=== PATIENT | male | born 1930 | race Caucasian/White ===

== ENCOUNTER 2016-12-03 02:09 | Inpatient (IN) | payer MEDICARE ==
[2016-12-03] VITALS (22 sets, daily range): BP systolic 65–145; BP diastolic 35–99; PULSE 70–84; RESP 20–51; TEMP 90.1–93.7; O2SAT 85–100
[~2016-12-03] VITALS: Ht 182.9 cm; Wt 89.0 kg
[~2016-12-03 02:09] MED LIST: ARIC10TA PO; ASPI81TA82 PO; CHOL1CAP6 PO; FINA5TAB77 PO; HYDR-3533 PO; LISI-363 PO; LORA-392 PO; METF750T PO; NAME10TA PO; NITR.3 SL; OMEG100037 PO; PROBCAP4 PO; TAMS0.4C67 PO; VITA10004 PO
[2016-12-03] MEDS ORDERED: RESP: ALBUTEROL 2.5 MG/IPRATROPIUM 0.5 MG NEB (SCH) NEB ONE (02:15)
[2016-12-03] MEDS ORDERED: NALOXONE HCL 2 MG/2 ML VIAL IV PUSH ONE ×2 (02:15→02:30)
--- NOTE | 2016-12-03 02:24 | PD ---
HPI Chief Complaint: Respiratory Distress Time Seen by Provider: 02:10 Travel History International Travel<30 days: No Contact w/Intl Traveler<30days: No Traveled to known affect area: No History of Present Illness HPI 86 yo M arrives from [facility] where he had been somewhat dyspneic for approx 6 hours and less interactive than normal. Per Lavern LIMON at [facility] the patient is normally communicative with clear speech. He is wheelchair bound. Over the past couple days he has been declining and increasingly confused. This evening he became increasingly short of breath. With regard to the confusion the patient was taking off his clothes and taking off his briefs. He was unable to swallow his medications at one point and gurgling was heard by halfway staff. It sounded as though there was "liquid in his chest" and EMS was activated at that point. PFSH Past Medical History Alzheimer's Disease: Yes Anemia: Yes Atrial Fibrillation: Yes Anxiety: Yes Dementia: Yes Diabetes: Yes (TYPE 2) Patient Takes Glucophage: No Diminished Hearing: No Gastrointestinal Disorders: Yes (GALLSTONES WITH STENT PLACEMENT) Genitourinary: Yes (BPH) Hypertension: Yes Immunizations Current: Yes Tetanus Vaccination: Unknown Social History Alcohol Use: No Tobacco Use: Yes Substance Use: No Allergies-Medications (Allergen,Severity, Reaction): Coded Allergies: No Known Allergies (Unverified , 05/12/16) Reported Meds & Prescriptions Reported Meds & Active Scripts Active Reported Lantiseptic Skin Protecta (Skin Protectants, Misc.) 50 % Oin TOPICAL TID Hydrocortisone Topical 1% Cream 1 Applic TOPICAL BID Santyl Topical (Collagenase) 250 Unit/Gm Oint 1 Applic TOPICAL DAILY Gentamicin Topical 0.1% Oint Tramadol (Tramadol HCl) 50 Mg Tab 50 Mg PO Q8H PRN Duoneb (Ipratropium-Albuterol Neb) 0.5-2.5 Mg/3 Ml Neb 1 Nebule INH Q4HR NEB Robitussin Peak Cold Dm 100-10 mg/5Ml (Dextromethorphan-Guaifenesin) 1 Syp Syp 10 Ml PO Q6HR PRN Ascorbic Acid 500 Mg Tab 500 Mg PO BID Meloxicam 7.5 Mg Tab 7.5 Mg PO BID Doxycycline Hyclate 100 Mg Cap 100 Mg PO BID Zinc (Zinc Gluconate) 50 Mg Tab 220 Mg PO DAILY Tamsulosin (Tamsulosin HCl) 0.4 Mg Cap 0.4 Mg PO DAILY Namenda Xr (Memantine) 28 Mg Caper 28 Mg PO DAILY Walt Multivitamin with Mineral (Multivitamin with Minerals) 1 Each Tablet 1 Tab PO DAILY Metformin (Metformin HCl) 500 Mg Tab 500 Mg PO DAILY With a meal Melatonin 3 Mg Tab 3 Mg PO HS Lisinopril 20 Mg Tab 20 Mg PO DAILY Hydrochlorothiazide 12.5 Mg Cap 12.5 Mg PO DAILY [place] 3 1000 mg ([place]-3 Fatty Acids) 1 Cap Cap 1,000 Mg PO DAILY Finasteride 5 Mg Tab 5 Mg PO DAILY Do not crush. Donepezil 10 Mg Tab 10 Mg PO DAILY Docusate Sodium 100 Mg Cap 100 Mg PO DAILY Vitamin D-1000 (Cholecalciferol) 1,000 Unit Tab 1,000 Units PO DAILY Aspirin 81 Mg Chew 81 Mg CHEW DAILY Review of Systems ROS Limitations: Clinical Condition Physical Exam Narrative GENERAL: 86 yo M, GCS 7 (E2, V1, M4), moderate to severe respiratory distress SKIN: Warm and dry. HEAD: Atraumatic. Normocephalic. EYES: Pupils equal and round. No scleral icterus. No injection or drainage. ENT: No nasal bleeding or discharge. Mucous membranes pink and moist. NECK: Trachea midline. No JVD. CARDIOVASCULAR: Regular rate and rhythm. RESPIRATORY: Irregular rhythm. Rate 74. GASTROINTESTINAL: Soft. TTP suprapubic abdomen. MUSCULOSKELETAL: Extremities without clubbing, cyanosis, or edema. No obvious deformities. NEUROLOGICAL: GCS 7. Pinpoint pupils. PSYCHIATRIC: Appropriate mood and affect; insight and judgment normal. Data Data Last Documented VS Vital Signs Date Time Temp Pulse Resp B/P Pulse Ox O2 Delivery O2 Flow Rate FiO2 12/03/16 03:38 90.1 12/03/16 02:52 96 Nasal Cannula 4.00 12/03/16 02:40 79 30 113/71 Temp 90.1 Orders Electrocardiogram (12/03/16 02:10) Complete Blood Count With Diff (12/03/16 02:10) Comprehensive Metabolic Panel (12/03/16 02:10) Prothrombin Time / Inr (Pt) (12/03/16 02:10) Act Partial Throm Time (Ptt) (12/03/16 02:10) Lactic Acid Sepsis Protocol (12/03/16 02:10) Magnesium (Mg) (12/03/16 02:10) Lipase (12/03/16 02:10) Ckmb (Isoenzyme) Profile (12/03/16 02:10) Troponin I (12/03/16 02:10) Urinalysis - C+S If Indicated (12/03/16 02:10) Blood Culture (12/03/16 02:10) Chest, Single Ap (12/03/16 02:10) Arterial Blood Gas (Abg) (12/03/16 02:10) Blood Glucose (12/03/16 02:10) Ecg Monitoring (12/03/16 02:10) Iv Access Insert/Monitor (12/03/16 02:10) Oximetry (12/03/16 02:10) Oxygen Administration (12/03/16 02:10) Urinary Catheter Insert/Apply (12/03/16 02:10) Ct Abd/Pel W/O Iv Contrast (12/03/16 02:10) Ct Brain W/O Iv Contrast(Rout) (12/03/16 02:10) Ammonia (12/03/16 02:10) Naloxone Inj (Narcan Inj) (12/03/16 02:15) Albuterol-Ipratropium Neb (Duoneb Neb) (12/03/16 02:15) Sodium Chlor 0.9% 1000 Ml Inj (Ns 1000 M (12/03/16 02:30) Sodium Chlor 0.9% 1000 Ml Inj (Ns 1000 M (12/03/16 02:30) Naloxone Inj (Narcan Inj) (12/03/16 02:30) Urine Culture (12/03/16 02:25) Piperacil-Tazo 2.25 Gm Premix (Zosyn 2.2 (12/03/16 03:00) Vancomycin Inj (Vancomycin Inj) (12/03/16 03:00) CKMB (12/03/16 02:05) CKMB% (12/03/16 02:05) Ct Thorax/ Chest Wo Iv Contras (12/03/16 ) Hydralazine (Apresoline) (12/03/16 03:15) Warming [place] / Warming Syst PRN (12/03/16 03:25) Admit Order (Ed Use Only) (12/03/16 03:57) Labs Laboratory Tests Test 12/03/16 12/03/16 12/03/16 02:05 02:15 02:25 White Blood Count 7.8 TH/MM3 Red Blood Count 3.25 MIL/MM3 Hemoglobin 10.5 GM/DL Hematocrit 31.9 % Mean Corpuscular Volume 97.9 FL Mean Corpuscular Hemoglobin 32.2 PG Mean Corpuscular Hemoglobin 32.8 % Concent Red Cell Distribution Width 15.4 % Platelet Count 89 TH/MM3 Mean Platelet Volume 10.6 FL Neutrophils (%) (Auto) 87.2 % Lymphocytes (%) (Auto) 9.3 % Monocytes (%) (Auto) 3.1 % Eosinophils (%) (Auto) 0.2 % Basophils (%) (Auto) 0.2 % Neutrophils # (Auto) 6.8 TH/MM3 Lymphocytes # (Auto) 0.7 TH/MM3 Monocytes # (Auto) 0.2 TH/MM3 Eosinophils # (Auto) 0.0 TH/MM3 Basophils # (Auto) 0.0 TH/MM3 CBC Comment AUTO DIFF Differential Total Cells 100 Counted Neutrophils % (Manual) 60 % Band Neutrophils % 28 % Lymphocytes % 10 % Monocytes % 2 % Neutrophils # (Manual) 6.9 TH/MM3 Nucleated Red Blood Cells 5 /100 WBC Differential Comment FINAL DIFF MANUAL Platelet Estimate LOW Platelet Morphology Comment NORMAL Ovalocytes 1+ Prothrombin Time 11.6 SEC Prothromb Time International 1.0 RATIO Ratio Activated Partial 31.1 SEC Thromboplast Time Sodium Level 152 MEQ/L Potassium Level 3.8 MEQ/L Chloride Level 117 MEQ/L Carbon Dioxide Level 19.7 MEQ/L Anion Gap 15 MEQ/L Blood Urea Nitrogen 74 MG/DL Creatinine 2.10 MG/DL Estimat Glomerular Filtration 30 ML/MIN Rate Random Glucose 99 MG/DL Calcium Level 9.2 MG/DL Magnesium Level 1.9 MG/DL Total Bilirubin 0.4 MG/DL Aspartate Amino Transf 56 U/L (AST/SGOT) Alanine Aminotransferase 77 U/L (ALT/SGPT) Alkaline Phosphatase 98 U/L Total Creatine Kinase 151 U/L Creatine Kinase MB 19.9 NG/ML Troponin I 0.05 NG/ML Total Protein 5.8 GM/DL Albumin 2.4 GM/DL Lipase 229 U/L Lactic Acid Level 9.1 mmol/L Ammonia 14 MCMOL/L Urine Color ORANGE Urine Turbidity HAZY Urine pH 5.0 Urine Specific [place] 1.026 Urine Protein 30 mg/dL Urine Glucose (UA) NEG mg/dL Urine Ketones NEG mg/dL Urine Occult Blood NEG Urine Nitrite NEG Urine Bilirubin NEG Urine Urobilinogen 4.0 MG/DL Urine Leukocyte Esterase LARGE Urine RBC 5 /hpf Urine WBC 14 /hpf Urine Renal Epithelial Cells <1 /hpf Urine Amorphous Sediment RARE Urine Bacteria RARE /hpf Urine Hyaline Casts 8 /lpf Urine Mucus FEW /lpf Microscopic Urinalysis Comment CATH-CULTURE IND Blood Gas Puncture Site RT FEMORAL Blood Gas Patient Temperature 98.6 Blood Gas HCO3 14 mmol/L Blood Gas Base Excess -10.4 mmol/L Blood Gas Oxygen Saturation 96 % Arterial Blood pH 7.34 Arterial Blood Partial 27 mmHg Pressure CO2 Arterial Blood Partial 107 mmHG Pressure O2 Arterial Blood Oxygen Content 16.8 Vol % Arterial Blood 0.8 % Carboxyhemoglobin Arterial Blood Methemoglobin 0.8 % Blood Gas Hemoglobin 12.4 G/DL Oxygen Delivery Device NONREBREATHER MK Blood Gas Liter Flow 15 L/M MDM Medical Decision Making Medical Screen Exam Complete: Yes Emergency Medical Condition: Yes Medical Record Reviewed: Yes Differential Diagnosis Sepsis, severe sepsis, PNA, UTI, MODS, polypharmacy, ACS, CVA Narrative Course CBC & BMP Diagram 12/03/16 02:05 Band neutrophils 28% Lactic acid 9.1 Ammonia 14 Tn 0.05 AB.34 / BE -10.4 [id number] EKG: rate 81, irregular, nonspecific T-wave abnormality Last 24 hours Impressions Chest X-Ray 12/03/16 0210 Signed Impressions: Service Date/Time: Saturday, December 03, 2016 02:17 - CONCLUSION: 1. Perihilar pulmonary edema Garrett Almanzar MD 2L NS started, BP approx 115/80 w HR approx 80 Zosyn 2.25g, Vanco 1.75G started Warming blanket started Family stated pt would not want intubation d/w Dr Rios Critical Care Narrative Aggregate critical care time was 40 minutes. Time to perform other separately billable procedures was not included in the critical care time. My time did not include minutes spent treating any other patients simultaneously or on activities that did not directly contribute to the patient's treatment. The services I provided to this patient were to treat and/or prevent clinically significant deterioration that could result in: Cardiopulmonary arrest, mortality, multiorgan failure I provided critical care services requiring my management, as noted below: Chart data review, documentation time, medication orders and management, vital sign assessments/reviewing monitor data, ordering and reviewing lab tests, ordering and interpreting/reviewing x-rays and diagnostic studies, care of the patient and discussion of the patient with the admitting physicians. Sepsis Criteria SIRS Criteria (2 or more): Temp > 100.9 or < 96.8, WBC > 26221, < 4000 or > 10 % bands Sepsis Criteria (SIRS+source): Infect source susp/known Severe Sepsis (+one): Lactate >2 Septic Shock Criteria: Lactic acid >=4 Multiple Organ Dysfunction Syn: Evidence -2 organs failing Diagnosis Primary Impression: Sepsis with multi-organ dysfunction Admitting Information Admitting Physician Requests: Admit Sukumar Brar MD Dec 03, 2016 02:24
[2016-12-03] MEDS ORDERED: SODIUM CHLOR 0.9% 1000 ML INJ 1,000 ML IV ONE ×2 (02:30)
[2016-12-03 02:38] LABS: AUTOMATED NEUTROPHIL # 6.8 TH/MM3 (1.8-7.7); BASOPHIL % 0.2 % (0.0-2.0); EOSINOPHIL % 0.2 % (0.0-4.0); HEMATOCRIT 31.9 % (39.0-51.0); LYMPH % 9.3 % (9.0-44.0); LYMPHOCYTE # 0.7 TH/MM3 (1.0-4.8); MEAN CELL VOLUME 97.9 FL (80.0-100.0); MEAN CORPUSCULAR HEMOGLOBIN 32.2 PG (27.0-34.0); MEAN CORPUSCULAR HGB CONC 32.8 % (32.0-36.0); MONO % 3.1 % (0.0-8.0); NEUT % 87.2 % (16.0-70.0); PLATELET COUNT 89 TH/MM3 (150-450); RED BLOOD COUNT 3.25 MIL/MM3 (4.50-5.90); RED CELL DISTRIBUTION WIDTH 15.4 % (11.6-17.2); WHITE BLOOD COUNT 7.8 TH/MM3 (4.0-11.0)
--- NOTE | 2016-12-03 02:39 | RADRPT ---
EXAM DATE/TIME: 12/03/2016 02:17 [facility] COMPARISON: CHEST SINGLE AP, May 01, 2014, 13:12. INDICATIONS : Shortness of breath. MEDICAL HISTORY : Diabetes mellitus type II. SURGICAL HISTORY : None. ENCOUNTER: Initial ACUITY: 1 day PAIN SCORE: Non-responsive. LOCATION: chest FINDINGS: The cardiac silhouette is normal in transverse diameter. There is prominence of the central pulmonary vasculature with indistinct vascular margins compatible with vascular congestion but no evidence of overt failure. No pleural effusions are identified. CONCLUSION: 1. Perihilar pulmonary edema Garrett Almanzar MD on December 03, 2016 at 2:37 Board Certified Radiologist. This report was verified electronically.
[2016-12-03 02:40] LABS: HEMO FLAGS AUTO DIFF
[2016-12-03 02:44] LABS: BACTERIA, URINE RARE /hpf; BLOOD, URINE NEG (NEG); COMMENT (UR) CATH-CULTURE IND; CULTURE IF INDICATED CATH CULTURE IND; GLUCOSE,URINE NEG (NEG); HYALINE CAST, URINE 8 /lpf (RARE); KETONE, URINE NEG (NEG); MUCUS URINE FEW /lpf (OCC); NITRITE,URINE NEG (NEG); RENAL EPITHELIAL CELLS <1 /hpf; URINE COLOR ORANGE (YELLW/STRAW)
[2016-12-03 02:51] LABS: ALT (GPT) 77 U/L (12-78); ANION GAP 15 MEQ/L (5-15); AST (GOT) 56 U/L (15-37); BICARBONATE 19.7 MEQ/L (21.0-32.0); BLOOD UREA NITROGEN 74 MG/DL (7-18); CHLORIDE 117 MEQ/L (98-107); GLOMERULAR FILTRATION RATE 30 ML/MIN (>89); MAGNESIUM 1.9 MG/DL (1.5-2.5); POTASSIUM 3.8 MEQ/L (3.5-5.1); SODIUM (NA) 152 MEQ/L (136-145)
[2016-12-03 02:55] LABS: ALKALINE PHOSPHATASE 98 U/L (45-117); CREATINE KINASE 151 U/L (39-308); TOTAL BILIRUBIN ADULT 0.4 MG/DL (0.2-1.0)
[2016-12-03 02:56] LABS: BLOOD GAS BASE EXCESS -10.4 mmol/L (-2-2); BLOOD GAS CARBOXYHEMOGLOBIN 0.8 % (0-4); BLOOD GAS HCO3 14 mmol/L (22-26); BLOOD GAS METHEMOGLOBIN 0.8 % (0-2); BLOOD GAS O2 HGB SATURATION 96 % (90-100); BLOOD GAS OXYGEN CONTENT 16.8 Vol % (12.0-20.0); BLOOD GAS PCO2 27 mmHg (38-42); BLOOD GAS PO2 107 mmHG (61-120); BLOOD GAS TOTAL HGB 12.4 G/DL (12.0-16.0); TEMP CORR TO 98.6
[2016-12-03 02:57] LABS: CRITICAL VALUE YES; DRAW SITE RT FEMORAL; LITER FLOW 15 L/M; NUMBER OF ARTERIAL PUNCTURES 1; OXYGEN DEVICE NONREBREATHER MK; STAT YES
[2016-12-03] MEDS ORDERED: VANCOMYCIN INJ 1,750 MG in SODIUM CHLORID 0.9% 500 ML INJ 500 ML IV ONE (03:00)
[2016-12-03] MEDS ORDERED: PIPERACIL-TAZO 2.25 GM PREMIX 50 ML IV ONE (03:00)
[2016-12-03 03:08] LABS: CKMB 19.9 NG/ML (0.5-3.6)
[2016-12-03 03:13] LABS: BANDS 28 % (0-6); CORRECTED NUCLEATED RBC 5 /100 WBC (0-0); NEUTROPHIL # MANUAL DIFF 6.9 TH/MM3 (1.8-7.7); POLYS (SEG NEUTROPHILS) 60 % (16-70); WBC DIFF SAMPLE 100
[2016-12-03] MEDS ORDERED: OMEG100010 PO (03:13)
[2016-12-03] MEDS ORDERED: GENT0.1O2 (03:13)
[2016-12-03] MEDS ORDERED: DOCU100C PO (03:13)
[2016-12-03] MEDS ORDERED: ROBISYP8 PO (03:13)
[2016-12-03] MEDS ORDERED: DONE10TA7 PO (03:13)
[2016-12-03] MEDS ORDERED: TRAM50TA PO (03:13)
[2016-12-03] MEDS ORDERED: MEMA28CA PO (03:13)
[2016-12-03] MEDS ORDERED: TAMS0.4C4 PO (03:13)
[2016-12-03] MEDS ORDERED: MULT-182 PO (03:13)
[2016-12-03] MEDS ORDERED: IPRASOL INH (03:13)
[2016-12-03] MEDS ORDERED: MELO7.5T4 PO (03:13)
[2016-12-03] MEDS ORDERED: COLL30T TOPICAL (03:13)
[2016-12-03] MEDS ORDERED: HYDR1CRE TOPICAL (03:13)
[2016-12-03] MEDS ORDERED: MELA3TAB PO (03:13)
[2016-12-03] MEDS ORDERED: FINA5TAB2 PO (03:13)
[2016-12-03] MEDS ORDERED: METF500T PO (03:13)
[2016-12-03] MEDS ORDERED: DOXY100C PO (03:13)
[2016-12-03] MEDS ORDERED: ASCO500T PO (03:13)
[2016-12-03] MEDS ORDERED: HYDR12.57 PO (03:13)
[2016-12-03] MEDS ORDERED: ASPI81CH CHEW (03:13)
[2016-12-03] MEDS ORDERED: [UNRECOGNIZED DRUG - CODE] TOPICAL (03:13)
[2016-12-03] MEDS ORDERED: VITA1000 PO (03:13)
[2016-12-03] MEDS ORDERED: LISI-515 PO (03:13)
[2016-12-03] MEDS ORDERED: CHEL50TA PO (03:13)
[2016-12-03 03:14] LABS: APTT (PATIENT) 31.1 SEC (24.3-30.1); OVALOCYTES 1+ (NORMAL); PLATELET ESTIMATE SMEAR LOW (NORMAL); PLATELET MORPHOLOGY NORMAL (NORMAL); PROTHROMBIN TIME - PATIENT 11.6 SEC (9.8-11.6); SCAN/DIFF FINAL DIFF MANUAL
[2016-12-03] MEDS ORDERED: hydrALAZINE HCL 25 MG TAB PO ONE (03:15)
--- NOTE | 2016-12-03 04:00 | RADRPT ---
EXAM DATE/TIME: 12/03/2016 03:04 [facility] COMPARISON: CT BRAIN W/O CONTRAST, May 12, 2016, 20:54. INDICATIONS : Altered mental status. RADIATION DOSE: 56.35 CTDIvol (mGy) MEDICAL HISTORY : Dementia. Alzheimer's. Hypertension.Diabetes. Anemia. SURGICAL HISTORY : None. ENCOUNTER: Initial ACUITY: 1 day PAIN SCALE: 0/10 LOCATION: cranial TECHNIQUE: Multiple contiguous axial images were obtained of the head. Using automated exposure control and adjustment of the mA and/or kV according to patient size, radiation dose was kept as low as reasonably achievable to obtain optimal diagnostic quality images. FINDINGS: Noncontrast axial head CT demonstrates the ventricles to be enlarged with a prominent sulcal pattern compatible with atrophy. No acute intracranial hemorrhage, acute cortical infarction, mass or midline shift is seen. Posterior fossa structures are unremarkable. Bone windows demonstrate no abnormality. CONCLUSION: Atrophy. No evidence of acute intracranial pathology. Garrett Almanzar MD on December 03, 2016 at 3:55 Board Certified Radiologist. This report was verified electronically.
--- NOTE | 2016-12-03 04:06 | RADRPT ---
EXAM DATE/TIME: 12/03/2016 03:06 [facility] COMPARISON: No previous studies available for comparison. INDICATIONS : Abdominal pain. ORAL CONTRAST: No oral contrast ingested. RADIATION DOSE: 6.93 CTDIvol (mGy) MEDICAL HISTORY : Hypertension. Anemia. Diabetes. Gallstones. SURGICAL HISTORY : Gallbladder stent. ENCOUNTER: Initial ACUITY: 1 day PAIN SCALE: 2/10 LOCATION: All quadrants. TECHNIQUE: Volumetric scanning of the abdomen and pelvis was performed. Using automated exposure control and ad justment of the mA and/or kV according to patient size, radiation dose was kept as low as reasonably achievable to obtain optimal diagnostic quality images. FINDINGS: There is bilateral lower lobe atelectasis versus pneumonia. A small left sided effusion is present. T he liver and spleen are normal in size and no focal defects are identified. The adrenal glands and ki dneys appear normal bilaterally. No hydronephrosis or mass lesions are identified. The gallbladder an d pancreas are unremarkable. No intrahepatic or extrahepatic ductal dilatation is seen. There is a si ngle simple cyst in the left kidney measuring 3 cm in the midpole. Examination of the pelvis demonstrates no evidence of free fluid or pelvic mass. No abnormally enlarg ed inguinal or retroperitoneal lymph nodes are present. The bladder is unremarkable. There is a large amount of stool within the rectum characteristic of fecal impaction. CONCLUSION: 1. Fecal impaction. There is thickening of the wall of the rectum which may reflect stercoral colitis . Garrett Almanzar MD on December 03, 2016 at 3:59 Board Certified Radiologist. This report was verified electronically.
--- NOTE | 2016-12-03 04:09 | RADRPT ---
EXAM DATE/TIME: 12/03/2016 03:08 [facility] COMPARISON: No previous studies available for comparison. INDICATIONS : Short of breath. RADIATION DOSE: 6.93 CTDIvol (mGy) ; Combined studies - Thorax/Abdomen/Pelvis MEDICAL HISTORY : Non-responsive. SURGICAL HISTORY : Non-responsive. ENCOUNTER: Initial ACUITY: 1 day PAIN SCALE: Non-responsive LOCATION: chest TECHNIQUE: Volumetric scanning of the chest was performed. Using automated exposure control and adjustment of t he mA and/or kV according to patient size, radiation dose was kept as low as reasonably achievable to obtain optimal diagnostic quality images. FINDINGS: Moderate size bilateral pleural effusions are present left greater than right. There is bilateral low er lobe atelectasis versus pneumonia. Perihilar pulmonary edema is present. No pulmonary nodules are identified. There is bilateral pleural calcification characteristic of asbestos exposure. Examination of the mediastinum demonstrates no abnormally enlarged lymph nodes by CT criteria. No axi llary or hilar abnormalities are identified. Coronary artery calcifications are present. The visualiz ed upper abdomen demonstrates no abnormality. CONCLUSION: 1. Perihilar pulmonary edema with bilateral effusions and bibasilar atelectasis Garrett Almanzar MD on December 03, 2016 at 4:06 Board Certified Radiologist. This report was verified electronically.
[2016-12-03] MEDS ORDERED: SOD PHOSPHATE/SOD BIPHOSPHATE (ADULT) ENEMA 133ML RECTAL ONE (04:15)
[2016-12-03 04:30] LABS: LACTIC ACID GHOST NOT REPORTABLE
[2016-12-03] MEDS: SODIUM CHLOR 0.9% 1000 ML INJ 1,000 ML IV SCH ×2 (04:54→16:09)
[2016-12-03] MEDS ORDERED: LACTULOSE SYRUP 20 GM/30 ML CUP PO PRN (05:00)
[2016-12-03] MEDS ORDERED: MISCELLANEOUS NURSING INFORMATION XX SCH (05:00)
[2016-12-03] MEDS ORDERED: LORazepam 2 MG/ML VIAL IV PRN ×2 (05:00→17:00)
[2016-12-03] MEDS ORDERED: METOCLOPRAMIDE HCL 10 MG/2 ML VIAL IV PRN (05:00)
[2016-12-03] MEDS ORDERED: SENNOSIDES 8.6 MG TAB PO PRN (05:00)
[2016-12-03] MEDS ORDERED: MORPHINE SULFATE 4 MG/ML INJ IV PRN ×2 (05:00→17:00)
[2016-12-03] MEDS ORDERED: ONDANSETRON HCL 4 MG/2 ML VIAL IV PRN (05:00)
[2016-12-03] MEDS ORDERED: ACETAMINOPHEN 325 MG TAB PO PRN (05:00)
[2016-12-03] MEDS ORDERED: MAGNESIUM HYDROXIDE SUSP 30 ML CUP PO PRN (05:00)
[2016-12-03] MEDS ORDERED: RESP: ALBUTEROL 2.5 MG/IPRATROPIUM 0.5 MG NEB (PRN) INH (05:00)
[2016-12-03] MEDS ORDERED: PROCHLORPERAZINE 25 MG SUPP RECTAL PRN (05:00)
[2016-12-03] MEDS ORDERED: SODIUM CHLORIDE 0.9% FLUSH 10 ML FLUSH PRN (05:00)
[2016-12-03] MEDS ORDERED: CHLORHEXIDINE GLUCONATE 2 % 1 PACK (2 CLOTHS) TOP PRN (05:00)
[2016-12-03] MEDS ORDERED: BISACODYL 10 MG SUPP RECTAL PRN (05:00)
--- NOTE | 2016-12-03 05:19 | HHI.HP ---
HPI Service Critical Care Medicine Primary Care Physician Non-Staff Admission Diagnosis MODS, Hypothermia Diagnosis: Travel History International Travel<30 Days: No Contact w/Intl Traveler <30 Da: No Traveled to Known Affected Are: No History of Present Illness 86-year-old male with advanced Alzheimer dementia and a resident of assisted living facility, where he had been somewhat dyspneic for approx 6 hours and less interactive than normal. Per Lavern RN at [facility] the patient is normally communicative with clear speech. He is wheelchair bound. Over the past couple days he has been declining and increasingly confused. This evening he became increasingly short of breath. With regard to the confusion the patient was taking off his clothes and taking off his briefs. He was unable to swallow his medications at one point and gurgling was heard by long-term staff. It sounded as though there was "liquid in his chest" and EMS was activated at that point. Review of Systems ROS Unable to obtain patient is lethargic Past Family Social History Allergies: Coded Allergies: No Known Allergies (Unverified , 05/12/16) Past Medical History Alzheimer dementia BPH Hypertension Diabetes mellitus type 2 Dyslipidemia Past Surgical History Shockwave lithotripsy Ureteral stent Reported Medications Reported Meds & Active Scripts Active Reported Lantiseptic Skin Protecta (Skin Protectants, Misc.) 50 % Oin TOPICAL TID Hydrocortisone Topical 1% Cream 1 Applic TOPICAL BID Santyl Topical (Collagenase) 250 Unit/Gm Oint 1 Applic TOPICAL DAILY Gentamicin Topical 0.1% Oint Tramadol (Tramadol HCl) 50 Mg Tab 50 Mg PO Q8H PRN Duoneb (Ipratropium-Albuterol Neb) 0.5-2.5 Mg/3 Ml Neb 1 Nebule INH Q4HR NEB Robitussin Peak Cold Dm 100-10 mg/5Ml (Dextromethorphan-Guaifenesin) 1 Syp Syp 10 Ml PO Q6HR PRN Ascorbic Acid 500 Mg Tab 500 Mg PO BID Meloxicam 7.5 Mg Tab 7.5 Mg PO BID Doxycycline Hyclate 100 Mg Cap 100 Mg PO BID Zinc (Zinc Gluconate) 50 Mg Tab 220 Mg PO DAILY Tamsulosin (Tamsulosin HCl) 0.4 Mg Cap 0.4 Mg PO DAILY Namenda Xr (Memantine) 28 Mg Caper 28 Mg PO DAILY Walt Multivitamin with Mineral (Multivitamin with Minerals) 1 Each Tablet 1 Tab PO DAILY Metformin (Metformin HCl) 500 Mg Tab 500 Mg PO DAILY With a meal Melatonin 3 Mg Tab 3 Mg PO HS Lisinopril 20 Mg Tab 20 Mg PO DAILY Hydrochlorothiazide 12.5 Mg Cap 12.5 Mg PO DAILY [place] 3 1000 mg ([place]alph-3 Fatty Acids) 1 Cap Cap 1,000 Mg PO DAILY Finasteride 5 Mg Tab 5 Mg PO DAILY Do not crush. Donepezil 10 Mg Tab 10 Mg PO DAILY Docusate Sodium 100 Mg Cap 100 Mg PO DAILY Vitamin D-1000 (Cholecalciferol) 1,000 Unit Tab 1,000 Units PO DAILY Aspirin 81 Mg Chew 81 Mg CHEW DAILY Active Ordered Medications Current Medications Medications (Trade) Dose Ordered Sig/Alyssa Route PRN Reason Start Time Stop Time Status Last Admin Dose Admin Vancomycin HCl/ Sodium Chloride (Vancomycin Inj/ NS 500 ml Inj) 517.5 ml @ 258.75 mls/ hr ONCE ONCE IV 12/03/16 03:00 12/03/16 04:59 12/03/16 03:42 Family History Noncontributory Social History Negative 3 Physical Exam Vital Signs Vital Signs Date Time Temp Pulse Resp B/P Pulse Ox O2 Delivery O2 Flow Rate FiO2 12/03/16 03:38 90.1 12/03/16 02:52 96 Nasal Cannula 4.00 12/03/16 02:40 79 30 113/71 96 Nasal Cannula 4 12/03/16 02:35 30 98 Nasal Cannula 4 12/03/16 02:32 71 28 142/75 98 Nasal Cannula 4 12/03/16 02:32 99 Nasal Cannula 4 12/03/16 02:30 98 Non-Rebreather 15.00 12/03/16 02:30 96 12/03/16 02:23 71 28 72/ 98 Non-Rebreather 15 12/03/16 02:22 97 Non-Rebreather 15 12/03/16 02:12 80 28 100 Physical Exam GENERAL: Elderly-appearing male in no acute distress, GCS 7. SKIN: Warm and dry. HEAD: Normocephalic. EYES: No scleral icterus. No injection or drainage. NECK: Supple, trachea midline. No JVD or lymphadenopathy. CARDIOVASCULAR: Regular rate and rhythm without murmurs, gallops, or rubs. RESPIRATORY: Breath sounds equal bilaterally. No accessory muscle use. GASTROINTESTINAL: Abdomen soft, non-tender, nondistended. MUSCULOSKELETAL: No cyanosis, or edema. BACK: Nontender without obvious deformity. No CVA tenderness. EXTREMITIES: No clubbing or cyanosis Laboratory Laboratory Tests Test 12/03/16 12/03/16 12/03/16 02:05 02:15 02:25 White Blood Count 7.8 Red Blood Count 3.25 Hemoglobin 10.5 Hematocrit 31.9 Mean Corpuscular Volume 97.9 Mean Corpuscular Hemoglobin 32.2 Mean Corpuscular Hemoglobin 32.8 Concent Red Cell Distribution Width 15.4 Platelet Count 89 Mean Platelet Volume 10.6 Neutrophils (%) (Auto) 87.2 Lymphocytes (%) (Auto) 9.3 Monocytes (%) (Auto) 3.1 Eosinophils (%) (Auto) 0.2 Basophils (%) (Auto) 0.2 Neutrophils # (Auto) 6.8 Lymphocytes # (Auto) 0.7 Monocytes # (Auto) 0.2 Eosinophils # (Auto) 0.0 Basophils # (Auto) 0.0 CBC Comment AUTO DIFF Differential Total Cells 100 Counted Neutrophils % (Manual) 60 Band Neutrophils % 28 Lymphocytes % 10 Monocytes % 2 Neutrophils # (Manual) 6.9 Nucleated Red Blood Cells 5 Differential Comment FINAL DIFF MANUAL Platelet Estimate LOW Platelet Morphology Comment NORMAL Ovalocytes 1+ Prothrombin Time 11.6 Prothromb Time International 1.0 Ratio Activated Partial 31.1 Thromboplast Time Sodium Level 152 Potassium Level 3.8 Chloride Level 117 Carbon Dioxide Level 19.7 Anion Gap 15 Blood Urea Nitrogen 74 Creatinine 2.10 Estimat Glomerular Filtration 30 Rate Random Glucose 99 Calcium Level 9.2 Magnesium Level 1.9 Total Bilirubin 0.4 Aspartate Amino Transf 56 (AST/SGOT) Alanine Aminotransferase 77 (ALT/SGPT) Alkaline Phosphatase 98 Total Creatine Kinase 151 Creatine Kinase MB 19.9 Troponin I 0.05 Total Protein 5.8 Albumin 2.4 Lipase 229 Lactic Acid Level 9.1 Ammonia 14 Urine Color ORANGE Urine Turbidity HAZY Urine pH 5.0 Urine Specific [place] 1.026 Urine Protein 30 Urine Glucose (UA) NEG Urine Ketones NEG Urine Occult Blood NEG Urine Nitrite NEG Urine Bilirubin NEG Urine Urobilinogen 4.0 Urine Leukocyte Esterase LARGE Urine RBC 5 Urine WBC 14 Urine Renal Epithelial Cells <1 Urine Amorphous Sediment RARE Urine Bacteria RARE Urine Hyaline Casts 8 Urine Mucus FEW Microscopic Urinalysis Comment CATH-CULTURE IND Blood Gas Puncture Site RT FEMORAL Blood Gas Patient Temperature 98.6 Blood Gas HCO3 14 Blood Gas Base Excess -10.4 Blood Gas Oxygen Saturation 96 Arterial Blood pH 7.34 Arterial Blood Partial 27 Pressure CO2 Arterial Blood Partial 107 Pressure O2 Arterial Blood Oxygen Content 16.8 Arterial Blood 0.8 Carboxyhemoglobin Arterial Blood Methemoglobin 0.8 Blood Gas Hemoglobin 12.4 Oxygen Delivery Device NONREBREATHER MK Blood Gas Liter Flow 15 Date/Time Procedure Status Source Growth 12/03/16 02:25 Urine Culture Received Urine Catheterized Urine Pending 12/03/16 02:10 Aerobic Blood Culture Received Blood Peripheral Pending 12/03/16 02:10 Anaerobic Blood Culture Received Blood Peripheral Pending Result Diagram: 12/03/16 02012/03/16 020 Imaging Last [address] 12/03/16209 Signed Impressions: Service Date/Time: Saturday, December 03, 2016 03:04 - CONCLUSION: Atrophy. No evidence of acute intracranial pathology. Garrett Almanzar MD Chest X-Ray 12/03/16209 Signed Impressions: Service Date/Time: Saturday, December 03, 2016 02:17 - CONCLUSION: 1. Perihilar pulmonary edema Garrett Almanzar MD Abdomen/Pelvis CT 12/03/16209 Signed Impressions: Service Date/Time: Saturday, December 03, 2016 03:06 - CONCLUSION: 1. Fecal impaction. There is thickening of the wall of the rectum which may reflect stercoral colitis. Garrett Almanzar MD Chest CT 12/03/16 0000 Signed Impressions: Service Date/Time: Saturday, December 03, 2016 03:08 - CONCLUSION: 1. Perihilar pulmonary edema with bilateral effusions and bibasilar atelectasis Garrett Almanzar MD Assessment and Plan Assessment and Plan Respiratory failure - Patient is DNR per his wishes - Possible intubation was discussed with patient's son by ER attending - Patient and family wouldn't want to use the artificial mechanical ventilation for life-support - Pulmonary edema - Gentle diuresis Acute renal failure - Unknown baseline - Gentle diuresis - Monitor eyes and nose - Monitor electrolytes and creatinine level Diabetes - Hold metformin - Insulin sliding scale Nutrition - Glucerna tube feeding BPH - Continue home medication DVT GI prophylaxis - Subcutaneous heparin and Pepcid Critical Care: The total critical care time was 35 minutes. Time to perform other separately billable procedures was not included in the critical care time. Jamal Rios MD Dec 03, 2016 05:18
[2016-12-03] MEDS: RESP: ALBUTEROL 2.5 MG/IPRATROPIUM 0.5 MG NEB (SCH) INH ×2 (08:44→16:00)
[2016-12-03] MEDS ORDERED: ZINC SULFATE 220 MG CAP PO SCH (09:00)
[2016-12-03] MEDS ORDERED: DOCUSATE SODIUM 100 MG CAP PO SCH (09:00)
[2016-12-03] MEDS ORDERED: ASCORBIC ACID 500 MG TAB PO SCH (09:00)
[2016-12-03] MEDS ORDERED: ASPIRIN 81 MG CHEW TAB CHEW SCH (09:00)
[2016-12-03] MEDS ORDERED: FINASTERIDE 5 MG TAB PO SCH (09:00)
[2016-12-03] MEDS ORDERED: HYDROCORTISONE 1% CREAM 30 GM TOPICAL SCH (09:00)
[2016-12-03] MEDS ORDERED: DOCUSATE SODIUM 50 MG/SENNA 8.6 MG TAB PO SCH (09:00)
[2016-12-03] MEDS ORDERED: DOXYCYCLINE HYCLATE 100 MG CAP PO SCH (09:00)
[2016-12-03] MEDS ORDERED: FAMOTIDINE 20 MG/2 ML VIAL IV PUSH SCH (09:00)
[2016-12-03] MEDS ORDERED: TAMSULOSIN HCL 0.4 MG CAP PO SCH (09:00)
[2016-12-03] MEDS ORDERED: MULTIVITAMINS/MINERALS THERAPEUTIC TAB PO SCH (09:00)
[2016-12-03] MEDS ORDERED: SODIUM CHLORIDE 0.9% FLUSH 10 ML FLUSH SCH (09:00)
[2016-12-03] MEDS ORDERED: HEPARIN SODIUM - SQ 10,000 UNITS/ML VIAL SQ SCH (09:00)
[2016-12-03] MEDS ORDERED: PHENYLEPHRINE 40 MG/D5W 496 ML ADMIX IV SCH ×2 (10:00)
[2016-12-03] MEDS ORDERED: fentaNYL CITRATE 250 MCG/5 ML AMP IV PUSH ONE (10:30)
--- NOTE | 2016-12-03 10:49 | PD.CONS ---
Consult Service Palliative Care . Consult Requested By Dr. Sterling . Primary Care Physician Non-Staff . Reason for Consultation a. To assist with evaluation and management of symptoms including: dyspnea, dysphagia. b. To assist medical decision maker(s) with: better understanding of current medical conditions; weighing benefits/burdens of medical treatment options; making medical treatment decisions. . HPI History of Present Illness Mr. Quezada is an 86 year old male with past medical history of Alzheimer's dementia, hypertension, type 2 diabetes, dyslipidemia and BPH. Patient is a resident is [facility]. Patient presented to [facility] emergency department with altered mental status and shortness of breath. Initial ER findings: * VS: temp 90.1, pulse 79, resp 30, oxygen sat 96% on 4LPM. * WBC 7.8, hemoglobin 10.5, hematocrit 31.9 , platelet count 89, nutritional 87.2% * PT 11.6, INR 1.0, PTT 31.1 * sodium 152, potassium 3.8, chloride 117, carbon dioxide 19.7, BUN 74, creatinine 2.1, GFR 30, random glucose 99, calcium 9.2, magnesium 1.9 * total bilirubin 0.4, AST 56, ALT 77, alkaline phosphatase 98 * total creatine kinase 151, CK MB 19.9, troponin 0.05 * total protein 5.8, albumin 2.4 * lipase 229 * lactic acid 9.1 * ammonia 14 * urinalysis positive for leukocyte esterase, bacteria, culture indicated * chest x-ray perihilar pulmonary edema * EKG rate 81, irregular, nonspecific T wave abnormality * AB.34 / BE -10.4 [id number] * CT head - atrophy, no evidence of acute intracranial pathology. * CT abdomen/pelvis fecal impaction, thickening of the wall of the rectum which may reflect colitis. * CT chest perihilar pulmonary edema with bilateral effusions and bilateral atelectasis. Patient was admitted with sepsis, multiorgan dysfunction, UTI. Patient was started on Zosyn and vancomycin. Family elected NO CODE. Blood and urine cultures pending. Patient remains in ICU on pressor support (Jay) on aerosol mask. Palliative care is consulted to assist with further clarification of treatment goals. . Function/Cognitive Trajectory Notes indicate at baseline the patient is bed/wheelchair bound and clear speech. Recent decline, increasingly confused (taking off clothes and briefs) and difficulty swallowing meds. . Review of Systems ROS Limitations: Altered Mental Status (dementia) Constitutional: COMPLAINS OF: Fatigue, Weight loss, Change in appetite ( decreased) Respiratory: COMPLAINS OF: Shortness of breath Cardiovascular: COMPLAINS OF: Dyspnea on Exertion Gastrointestinal: COMPLAINS OF: Constipation, Difficulty Swallowing Genitourinary: COMPLAINS OF: Urinary incontinence Integumentary: COMPLAINS OF: Non-healing sores (Left great toe. ) Hematologic/Lymphatics: COMPLAINS OF: Bruising Neurologic: COMPLAINS OF: Speech Problems Psychiatric: COMPLAINS OF: Confusion Past Family Social History Coded Allergies: No Known Allergies (Unverified , 05/12/16) Past Medical History Alzheimer dementia BPH Hypertension Diabetes mellitus type 2 Dyslipidemia Anemia Atrial Fibrillation . Past Surgical History Shockwave lithotripsy Ureteral stent . Reported Medications Reported Lantiseptic Skin Protecta (Skin Protectants, Misc.) 50 % Oin TOPICAL TID Hydrocortisone Topical 1% Cream 1 Applic TOPICAL BID Santyl Topical (Collagenase) 250 Unit/Gm Oint 1 Applic TOPICAL DAILY Gentamicin Topical 0.1% Oint Tramadol (Tramadol HCl) 50 Mg Tab 50 Mg PO Q8H PRN Duoneb (Ipratropium-Albuterol Neb) 0.5-2.5 Mg/3 Ml Neb 1 Nebule INH Q4HR NEB Robitussin Peak Cold Dm 100-10 mg/5Ml (Dextromethorphan-Guaifenesin) 1 Syp Syp 10 Ml PO Q6HR PRN Ascorbic Acid 500 Mg Tab 500 Mg PO BID Meloxicam 7.5 Mg Tab 7.5 Mg PO BID Doxycycline Hyclate 100 Mg Cap 100 Mg PO BID Zinc (Zinc Gluconate) 50 Mg Tab 220 Mg PO DAILY Tamsulosin (Tamsulosin HCl) 0.4 Mg Cap 0.4 Mg PO DAILY Namenda Xr (Memantine) 28 Mg Caper 28 Mg PO DAILY Walt Multivitamin with Mineral (Multivitamin with Minerals) 1 Each Tablet 1 Tab PO DAILY Metformin (Metformin HCl) 500 Mg Tab 500 Mg PO DAILY With a meal Melatonin 3 Mg Tab 3 Mg PO HS Lisinopril 20 Mg Tab 20 Mg PO DAILY Hydrochlorothiazide 12.5 Mg Cap 12.5 Mg PO DAILY [place] 3 1000 mg ([place]-3 Fatty Acids) 1 Cap Cap 1,000 Mg PO DAILY Finasteride 5 Mg Tab 5 Mg PO DAILY Do not crush. Donepezil 10 Mg Tab 10 Mg PO DAILY Docusate Sodium 100 Mg Cap 100 Mg PO DAILY Vitamin D-1000 (Cholecalciferol) 1,000 Unit Tab 1,000 Units PO DAILY Aspirin 81 Mg Chew 81 Mg CHEW DAILY . Current Medications Medications (Trade) Dose Ordered Sig/Alyssa Route Start Time Stop Time Status Last Admin (Vitamin C) 500 mg BID PO 12/03/16 09:00 (Aspirin Chew) 81 mg DAILY CHEW 12/03/16 09:00 (Colace) 100 mg DAILY PO 12/03/16 09:00 (Vibramycin) 100 mg BID PO 12/03/16 09:00 (Proscar) 5 mg DAILY PO 12/03/16 09:00 (Hydrocortisone 1% Cream) 1 applic BID TOPICAL 12/03/16 09:00 (Flomax) 0.4 mg DAILY PO 12/03/16 09:00 (Theragran M Tab) 1 tab DAILY PO 12/03/16 09:00 Zinc Sulfate 220 mg 220 mg DAILY PO 12/03/16 09:00 (NS 1000 ml Inj) 1,000 ml @ 84 mls/hr [id number] IV 12/03/16 04:54 12/03/16 04:54 (NS Flush) 2 ml UNSCH PRN .XX 12/03/16 05:00 12/03/16 09:40 (NS Flush) 2 ml BID .XX 12/03/16 09:00 12/03/16 09:40 (Tylenol) 650 mg Q6H PRN PO 12/03/16 05:00 (Morphine Inj) 2 mg Q2H PRN IV 12/03/16 05:00 (Pepcid Inj) 10 mg Q12HR IV PUSH 12/03/16 09:00 12/03/16 09:40 (Ativan Inj) 1 mg Q1H PRN IV 12/03/16 05:00 (Zofran Inj) 4 mg Q6H PRN IV 12/03/16 05:00 (Reglan Inj) 5 mg Q6H PRN IV 12/03/16 05:00 (Compazine Supp) 25 mg Q12H PRN RECTAL 12/03/16 05:00 (Heparin Inj) 5,000 units Q12HR SQ 12/03/16 09:00 Miscellaneous Information 1 Q361D XX 12/03/16 05:00 12/03/16 07:35 (Chlorhexidine 2% Cloth) 3 pack Taper DAILY@04 TOP 12/04/16 04:00 11/30/17 03:59 (Chlorhexidine 2% Cloth) 3 pack UNSCH PRN TOP 12/03/16 05:00 (Elvira-Colace) 1 tab BID PO 12/03/16 09:00 (Milk Of Magnesia Liq) 30 ml Q12H PRN PO 12/03/16 05:00 (Senokot) 17.2 mg Q12H PRN PO 12/03/16 05:00 (Dulcolax Supp) 10 mg DAILY PRN RECTAL 12/03/16 05:00 Lactulose 30 ml 30 ml DAILY PRN PO 12/03/16 05:00 (Neosynephrine Inj/D5W 500 ml Inj) 500 ml @ 0 mls/hr TITRATE IV 12/03/16 10:00 12/03/16 09:39 . Family History Parents . . Substance Use Tobacco: former smoker. Alcohol: none. Prescription med abuse: none. Illicits: none. . Psychosocial History 5 weeks ago, with [facility]. Has been a resident of [facility] since 2013. Supported by sonEDDI and their children who live in [place]. . Spiritual/Cultural Factors Raised Restorationist, non- practicing. Welcomes program schedule clerk support. . Living Will: Copy in medical record Health Care Surrogate: Copy in medical record Date completed: 11/29/2003 . Health Care Surrogate(s): Primary HCS Ruma Quezada - 5 weeks ago. Alternate HCS, son Jones Quezada. . Documented care wishes: He directs that life prolonging measures be withheld or withdrawn should he have an incurable or irreversible condition likely to cause his or permanent unconsciousness or profound dementia that all health care is to be withheld or withdrawn. He indicates he does not want nourishment or liquids be forced upon him. He desires medication necessary for comfort or alleviate pain even if his life be shortened thereby. . Today's verbally stated goals: Currently incapacitated, will not regain capacity due to underlying advanced dementia. . Family/friends goals: Family desires to continue current level of care, no further escalation of care for now. They would like to get through the next day or so (for personal reasons ), then plan for transition to hospice. Interested in [facility] placement upon DC where his 5 weeks ago. . Ethical and Legal Issues Incapacitated, will not regain capacity. No known written advanced directives. Living will and HCS paperwork on chart. Designated primary HCS Ruma Quezada ( - 5 weeks ago. Alternate HCS, son Jones Quezada. . Physical Exam Vital Signs Date Time Temp Pulse Resp B/P Pulse Ox O2 Delivery O2 Flow Rate FiO2 12/03/16 10:00 76 12/03/16 08:47 93 Aerosol Mask 6.00 12/03/16 08:00 91.3 74 36 70/44 98 12/03/16 08:00 74 12/03/16 06:03 91.0 79 24 145/89 92 12/03/16 06:00 70 12/03/16 06:00 91.4 75 30 145/99 100 Manual Cuff/Palpation 12/03/16 05:43 76 28 107/39 94 Nasal Cannula 4 12/03/16 04:15 91.0 84 28 121/85 96 Nasal Cannula 4 12/03/16 03:38 90.1 12/03/16 02:52 96 Nasal Cannula 4.00 12/03/16 02:40 79 30 113/71 96 Nasal Cannula 4 12/03/16 02:35 30 98 Nasal Cannula 4 12/03/16 02:32 71 28 142/75 98 Nasal Cannula 4 12/03/16 02:32 99 Nasal Cannula 4 12/03/16 02:30 98 Non-Rebreather 15.00 12/03/16 02:30 96 12/03/16 02:23 71 28 72/ 98 Non-Rebreather 15 12/03/16 02:22 97 Non-Rebreather 15 12/03/16 02:12 80 28 100 12/02/16 12/03/16 19:00 07:00 Intake Total 0 ml Output Total 0 ml Balance 0 ml Intake Oral 0 ml IV Total 0 ml Output Urine Total 0 ml # Bowel Movements 2 Exam CONSTITUTIONAL/GENERAL: This is an adequately nourished, lethargic patient, in no apparent distress. TUBES/LINES/DRAINS: Aerosol mask, right IJ central line, PIV, A-line, Barcenas. SKIN: No jaundice, rashes, or lesions. Ecchymoses on upper extremities. Wound left great toe. Skin temperature cool. HEAD: Atraumatic. Normocephalic. EYES: Eyes closed. ENT: Unable to assess hearing. Nose without bleeding or purulent drainage. Throat without visible erythema, exudates, masses, or lesions. NECK: Trachea midline. CARDIOVASCULAR: Regular rate and rhythm without murmurs, gallops, or rubs. No JVD. Peripheral pulses symmetric. RESPIRATORY/CHEST: Symmetric, unlabored respirations. Scattered course breath sounds. Diminished bilaterally. GASTROINTESTINAL: Abdomen soft, non-tender, nondistended. No guarding. Bowel sounds hypoactive. GENITOURINARY: Without palpable bladder distension. Barcenas catheter in place. MUSCULOSKELETAL: Extremities with edema. No mottling or clubbing. LYMPHATICS: No palpable cervical or supraclavicular adenopathy. NEUROLOGICAL: Does not open eyes or respond to voice or exam. Does not follow commands. PSYCHIATRIC: Unable to assess due to lethargy. . Diagnostic Tests Laboratory Laboratory Tests Test 12/03/16 12/03/16 12/03/16 12/03/16 02:05 02:15 02:25 04:40 White Blood Count 7.8 TH/MM3 (4.0-11.0) Red Blood Count 3.25 MIL/MM3 (4.50-5.90) Hemoglobin 10.5 GM/DL (13.0-17.0) Hematocrit 31.9 % (39.0-51.0) Mean Corpuscular Volume 97.9 FL (80.0-100.0) Mean Corpuscular Hemoglobin 32.2 PG (27.0-34.0) Mean Corpuscular Hemoglobin 32.8 % Concent (32.0-36.0) Red Cell Distribution Width 15.4 % (11.6-17.2) Platelet Count 89 TH/MM3 (150-450) Mean Platelet Volume 10.6 FL (7.0-11.0) Neutrophils (%) (Auto) 87.2 % (16.0-70.0) Lymphocytes (%) (Auto) 9.3 % (9.0-44.0) Monocytes (%) (Auto) 3.1 % (0.0-8.0) Eosinophils (%) (Auto) 0.2 % (0.0-4.0) Basophils (%) (Auto) 0.2 % (0.0-2.0) Neutrophils # (Auto) 6.8 TH/MM3 (1.8-7.7) Lymphocytes # (Auto) 0.7 TH/MM3 (1.0-4.8) Monocytes # (Auto) 0.2 TH/MM3 (0-0.9) Eosinophils # (Auto) 0.0 TH/MM3 (0-0.4) Basophils # (Auto) 0.0 TH/MM3 (0-0.2) CBC Comment AUTO DIFF Differential Total Cells 100 Counted Neutrophils % (Manual) 60 % (16-70) Band Neutrophils % 28 % (0-6) Lymphocytes % 10 % (9-44) Monocytes % 2 % (0-8) Neutrophils # (Manual) 6.9 TH/MM3 (1.8-7.7) Nucleated Red Blood Cells 5 /100 WBC (0-0) Differential Comment FINAL DIFF MANUAL Platelet Estimate LOW (NORMAL) Platelet Morphology Comment NORMAL (NORMAL) Ovalocytes 1+ (NORMAL) Prothrombin Time 11.6 SEC (9.8-11.6) Prothromb Time International 1.0 RATIO Ratio Activated Partial 31.1 SEC Thromboplast Time (24.3-30.1) Sodium Level 152 MEQ/L (136-145) Potassium Level 3.8 MEQ/L (3.5-5.1) Chloride Level 117 MEQ/L (98-107) Carbon Dioxide Level 19.7 MEQ/L (21.0-32.0) Anion Gap 15 MEQ/L (5-15) Blood Urea Nitrogen 74 MG/DL (7-18) Creatinine 2.10 MG/DL (0.60-1.30) Estimat Glomerular Filtration 30 ML/MIN (>89) Rate Random Glucose 99 MG/DL (74-106) Calcium Level 9.2 MG/DL (8.5-10.1) Magnesium Level 1.9 MG/DL (1.5-2.5) Total Bilirubin 0.4 MG/DL (0.2-1.0) Aspartate Amino Transf 56 U/L (15-37) (AST/SGOT) Alanine Aminotransferase 77 U/L (12-78) (ALT/SGPT) Alkaline Phosphatase 98 U/L (45-117) Total Creatine Kinase 151 U/L (39-308) Creatine Kinase MB 19.9 NG/ML (0.5-3.6) Troponin I 0.05 NG/ML (0.02-0.05) Total Protein 5.8 GM/DL (6.4-8.2) Albumin 2.4 GM/DL (3.4-5.0) Lipase 229 U/L (73-393) Lactic Acid Level 9.1 mmol/L 9.4 mmol/L (0.4-2.0) (0.4-2.0) Ammonia 14 MCMOL/L (11-32) Urine Color ORANGE (YELLW/STRAW) Urine Turbidity HAZY (CLEAR) Urine pH 5.0 (5.0-8.5) Urine Specific [place] 1.026 (1.002-1.035) Urine Protein 30 mg/dL (NEG-TRACE) Urine Glucose (UA) NEG mg/dL (NEG) Urine Ketones NEG mg/dL (NEG) Urine Occult Blood NEG (NEG) Urine Nitrite NEG (NEG) Urine Bilirubin NEG (NEG) Urine Urobilinogen 4.0 MG/DL (LESS THAN 2.0) Urine Leukocyte Esterase LARGE (NEG) Urine RBC 5 /hpf (0-3) Urine WBC 14 /hpf (0-5) Urine Renal Epithelial Cells <1 /hpf (NONE) Urine Amorphous Sediment RARE Urine Bacteria RARE /hpf (NONE) Urine Hyaline Casts 8 /lpf (RARE) Urine Mucus FEW /lpf (OCC) Microscopic Urinalysis Comment CATH-CULTURE IND Blood Gas Puncture Site RT FEMORAL Blood Gas Patient Temperature 98.6 Blood Gas HCO3 14 mmol/L (22-26) Blood Gas Base Excess -10.4 mmol/L (-2-2) Blood Gas Oxygen Saturation 96 % (90-100) Arterial Blood pH 7.34 (7.380-7.420) Arterial Blood Partial 27 mmHg (38-42) Pressure CO2 Arterial Blood Partial 107 mmHG Pressure O2 (61-120) Arterial Blood Oxygen Content 16.8 Vol % (12.0-20.0) Arterial Blood 0.8 % (0-4) Carboxyhemoglobin Arterial Blood Methemoglobin 0.8 % (0-2) Blood Gas Hemoglobin 12.4 G/DL (12.0-16.0) Oxygen Delivery Device NONREBREATHER MK Blood Gas Liter Flow 15 L/M Result Diagram: 6/16/17 0205 12/03/16 0205 Microbiology Microbiology Date/Time Procedure Status Source Growth 12/03/16 02:05 Aerobic Blood Culture Received Blood Peripheral Pending 12/03/16 02:05 Anaerobic Blood Culture Received Blood Peripheral Pending 12/03/16 02:10 Aerobic Blood Culture Received Blood Peripheral Pending 12/03/16 02:10 Anaerobic Blood Culture Received Blood Peripheral Pending 12/03/16 02:25 Urine Culture Received Urine Catheterized Urine Pending . Imaging Last Impressions Head CT 12/03/16209 Signed Impressions: Service Date/Time: Saturday, December 03, 2016 03:04 - CONCLUSION: Atrophy. No evidence of acute intracranial pathology. Garrett Almanzar MD Chest X-Ray 12/03/16209 Signed Impressions: Service Date/Time: Saturday, December 03, 2016 02:17 - CONCLUSION: 1. Perihilar pulmonary edema Garrett Almanzar MD Abdomen/Pelvis CT 12/03/16209 Signed Impressions: Service Date/Time: Saturday, December 03, 2016 03:06 - CONCLUSION: 1. Fecal impaction. There is thickening of the wall of the rectum which may reflect stercoral colitis. Garrett Almanzar MD Chest CT 12/03/16 0000 Signed Impressions: Service Date/Time: Saturday, December 03, 2016 03:08 - CONCLUSION: 1. Perihilar pulmonary edema with bilateral effusions and bibasilar atelectasis Garrett Almanzar MD . Procedures * Right IJ central line * A -line. . Patient/Family Conference Present at Family Conference: Met with son and his . Family Conference Time (mins): 60 Family Conference Location: Bedside Issues Discussed: * Palliative care role, purpose, approach * Additional medical, psychosocial, and spiritual history * Patients general health, functional status, and cognitive changes in the months leading up to the current hospitalization * Patient/family understanding of the current medical problems * Patient/family understanding of prognosis * Patients goals of care as best understood from advance directives and/or conversations and/or values * Current medical treatment options and benefits/burdens of those options * Likely scenarios comparing ongoing aggressive care with a transition to comfort measures only * Questions answered to the best of my ability * Palliative care contact information provided Met with sonJones ([facility]) and his . Family desires to continue current level of care, no further escalation of care for now. They would like to get through the next day or so (for personal reasons), then plan for transition to hospice. Interested in [place] [facility] placement upon DC where his 5 weeks ago. Assessment and Plan Disease Oriented Problem List: (1) Sepsis with multi-organ dysfunction (2) UTI (urinary tract infection) (3) Open wound of left great toe (4) Hypotension Comment: on pressor (5) Pulmonary edema (6) Pleural effusion (7) Dementia (8) Dysphagia (9) Acute on chronic renal failure Symptom Scale: (1) Dyspnea 0-10 Scale: Unable to quantify (2) Dysphagia 0-10 Scale: Unable to quantify Pertinent Non-Medical Issues Psychosocial: Recently . Long-term resident Shawn Vazquez. Supported by EDDI snowden and their children. Spiritual: Raised Restorationist, non practicing. Welcomes program schedule clerk support. SOn and EDDI are also chaplains. Legal: Incapacitated, will not regain capacity. No known written advanced directives. Living will and [facility] paperwork on chart. Designated primary [facility] Ruma Quezada ( - 5 weeks ago. Alternate [facility], son Jones Quezada. Ethical issues impacting care: No known concerns at this time. . Important Contacts * Jones Quezada, son: [phone] . Prognosis Mr. Quezada is an 86 year old male with advanced dementia with recent decline admitted with sepsis, UTI and pulmonary edema with overall poor prognosis. . Code Status: No Code Plan * Incapacitated, will not regain capacity. No known written advanced directives. Living will and [facility] paperwork on chart. Designated primary [facility] Ruma Quezada ( - 5 weeks ago. Alternate [facility], son Jones Quezada. * NO CODE (DNR/DNI) * Met with Jones snowden ([facility]) and his . Family desires to continue current level of care, no further escalation of care for now. They would like to get through the next day or so (for personal reasons - they have suffered a great deal of loss in the past year including pt 5 weeks ago), then plan for transition to hospice in the coming days. Interested in [facility] center placement upon DC where his 5 weeks ago. * Hospice consulted. * Discussed with nurse, Sneha and program schedule clerk. * SYMPTOMS: Dyspnea: on aerosol mask. Dysphagia:trouble swallowing in days to weeks prior to admission due to advancing dementia. * Palliative care number provided. * Palliative care will continue to follow to assist with symptom management and further clarify goals as needed. . Time Spent Total Floor Time (mins): 75 Face to Face Time (mins): 60 >50% Counseling/Coord of Care: Yes Thank you for the opportunity to participate in the care of Mr. Quezada. Attestation To help prompt me to consider important information that might be impacting today's encounter and assessment, information from prior notes written by myself or my colleagues may have been "brought forward" into today's note. My signature on this note, however, is an attestation that I personally performed the exam, history, and/or decision-making noted today, and, unless otherwise indicated, the interactions with patient, family, and staff as well as the review of records all occurred today. I also attest that the listed assessment and stated plan reflect my best clinical judgment today based on the combination of historical information, prior notes, and today's exam/ interactions. When time spent is documented, it refers only to time spent today by the signer, or if indicated, combined time spent today by collaborating physician/nurse practitioner. BRETT SEVILLA Dec 03, 2016 10:49
--- NOTE | 2016-12-03 11:14 | PD.PROCEDR ---
Central Line Procedure REASON FOR PROCEDURE Central venous access PROCEDURE PERFORMED Central line placement: Right IJ CONSENT Informed consent for procedure was obtained family /son. The risks and benefits of the procedure were discussed to include but limited to bleeding, clot formation, infection, and even . ANESTHESIA Local injection of 1% Lidocaine DESCRIPTION OF THE PROCEDURE The patient was placed in supine, mild Trendelenburg position. The area was exposed and cleansed with ChloraPrep, times two. Large sterile drape was used to cover the patient, with the site exposed, under sterile conditions including cap, face mask, sterile gown, and sterile gloves. On single attempt, the introducer needle was inserted with negative pressure in syringe and venous flash was obtained. The guide wire was then advanced without any restriction and the needle was removed. The dilator was used without any complications. Using Seldinger technique the 7 [place] catheter was advanced over the guide wire to a depth of 17 centimeters. The guide wire was removed. All ports were aspirated with dark venous blood return and flushed easily with sterile saline. All ports were capped. Antibiotic disc was placed around central line at puncture site. The central line was secured to the skin with two interrupted 2.0 silk sutures. The area was bandaged with sterile see-through central line bandage. RADIOLOGICAL DATA Ultrasound guidance was used to locate right IJ. Doppler/color flow was used to confirm venous flow. COMPLICATIONS: No apparent complications ESTIMATED BLOOD LOSS: Less than 1 cc. Carlita Sterling MD Dec 03, 2016 11:14
--- NOTE | 2016-12-03 11:16 | PD.PROCEDR ---
Procedure Note Procedure Procedure: Arterial Line Placement Right radial Diagnosis: Hemodynamic instability Indications: Severe hypotension Consent: From family/son Description of the Procedure: The right radial was prepped and draped sterilely. 1% lidocaine was used for local anesthesia. The pulse was located and a needle was advanced into the artery. A 20 gauge, 1.35 cm catheter was advanced into the artery using a modified Seldinger technique. The catheter was sutured to the skin and a sterile dressing was applied. The catheter was connected to a pressure transducer and an arterial waveform was noted. There were no immediate complications noted. There was minimal EBL. I personally performed the procedure. Carlita Sterling MD Dec 03, 2016 11:16
--- NOTE | 2016-12-03 11:20 | HHI.CCPN ---
Subjective Remarks/Hospital Course 86-year-old male with advanced Alzheimer dementia and a resident of assisted living facility, where he had been somewhat dyspneic for approx 6 hours and less interactive than normal. Per Lavern RN at [facility] the patient is normally communicative with clear speech. He is wheelchair bound. Over the past couple days he has been declining and increasingly confused. This evening he became increasingly short of breath. With regard to the confusion the patient was taking off his clothes and taking off his briefs. He was unable to swallow his medications at one point and gurgling was heard by long term staff. It sounded as though there was "liquid in his chest" and EMS was activated at that point. Subjective: 12/03: The patient's blood pressure was noted to be in the 70s. Family was contacted by RN, requested measures be instituted regarding blood pressure. Consents were obtained for central line and arterial line. Palliative care was consulted. Objective Vital Signs Date Time Temp Pulse Resp B/P Pulse Ox O2 Delivery O2 Flow Rate FiO2 12/03/16 10:00 76 12/03/16 08:47 93 Aerosol Mask 6.00 12/03/16 08:00 91.3 36 70/44 Result Diagram: 12/03/16 0205 12/03/16 0205 Other Results Laboratory Tests Test 12/03/16 02:25 Blood Gas Puncture Site RT FEMORAL Blood Gas Patient Temperature 98.6 Blood Gas HCO3 14 mmol/L (22-26) Blood Gas Base Excess -10.4 mmol/L (-2-2) Blood Gas Oxygen Saturation 96 % (90-100) Arterial Blood pH 7.34 (7.380-7.420) Arterial Blood Partial 27 mmHg (38-42) Pressure CO2 Arterial Blood Partial 107 mmHG Pressure O2 (61-120) Arterial Blood Oxygen Content 16.8 Vol % (12.0-20.0) Arterial Blood 0.8 % (0-4) Carboxyhemoglobin Arterial Blood Methemoglobin 0.8 % (0-2) Blood Gas Hemoglobin 12.4 G/DL (12.0-16.0) Oxygen Delivery Device NONREBREATHER MK Blood Gas Liter Flow 15 L/M Imaging Last [address] 12/03/16 0210 Signed Impressions: Service Date/Time: Saturday, December 03, 2016 03:04 - CONCLUSION: Atrophy. No evidence of acute intracranial pathology. Garrett Almanzar MD Chest X-Ray 12/03/16209 Signed Impressions: Service Date/Time: Saturday, December 03, 2016 02:17 - CONCLUSION: 1. Perihilar pulmonary edema Garrett Almanzar MD Abdomen/Pelvis CT 12/03/16209 Signed Impressions: Service Date/Time: Saturday, December 03, 2016 03:06 - CONCLUSION: 1. Fecal impaction. There is thickening of the wall of the rectum which may reflect stercoral colitis. Garrett Almanzar MD Chest CT 12/03/16 0000 Signed Impressions: Service Date/Time: Saturday, December 03, 2016 03:08 - CONCLUSION: 1. Perihilar pulmonary edema with bilateral effusions and bibasilar atelectasis Garrett Almanzar MD Objective Remarks GENERAL: Elderly-critically ill appearing male GCS 7. SKIN: Warm and dry. HEAD: Normocephalic. EYES: No scleral icterus. No injection or drainage. NECK: Supple, trachea midline. No JVD or lymphadenopathy. CARDIOVASCULAR: Regular rate and rhythm without murmurs, gallops, or rubs. RESPIRATORY: Breath sounds equal bilaterally. Coarse breath sounds throughout lung carroll No accessory muscle use. On facemask GASTROINTESTINAL: Abdomen soft, non-tender, nondistended. MUSCULOSKELETAL: No cyanosis, or edema. NEURO: Patient not responding, nonverbal, awake, tracking EXTREMITIES: No clubbing or cyanosis, noted dyskinesia Procedures Right internal jugular central line placement Right arterial radial art line placement Urinary Catheter: Yes Barcenas insert reason: Measure Accurate Output Date of Insertion: Dec 03, 2016 Vascular Central Line Catheter: Yes Assessment to: Continue Date of Insertion: Dec 03, 2016 Line: Central Venous Catheter Side: Right Location: Internal, Jugular (vasoactive medication) A/P Assessment and Plan Respiratory failure - Patient is DNR per his wishes - Possible intubation was discussed with patient's son by ER attending - Patient and family wouldn't want to use the artificial mechanical ventilation for life-support - Pulmonary edema - Gentle diuresis Acute renal failure - Unknown baseline - Gentle diuresis - Monitor eyes and nose - Monitor electrolytes and creatinine level Diabetes - Hold metformin - Insulin sliding scale Nutrition - Glucerna tube feeding BPH - Continue home medication Hypotension secondary to cardiogenic shock, possible septic shock -Central line placement -Arterial line placement - Begin Phenylephrine infusion to maintain MAP greater than 65mmHg DVT GI prophylaxis - Subcutaneous heparin and Pepcid Discussed with PHYSICIAN CHIEF OF PATHOLOGY at bedside. Palliative care has been consulted. The patient continues on low-dose phenylephrine to maintain a MAP of 65, empiric antibiotics have been initiated. No aggressive measures planned as patient is DNR. Critical Care: This patient remains critically ill with one or more organ systems which are or may become a threat to life. I have spent in excess of 40 minutes discontinuously in the care and management of this patient. This time is exclusive of procedures, and includes, but is not limited to, evaluation of the patient, review of the medical record, discussions with family, consultants, nursing staff, or respiratory therapy, and documentation in the medical record. Physician Carlita Esparza MD Dec 03, 2016 11:20
--- NOTE | 2016-12-03 11:43 | RADRPT ---
EXAM DATE/TIME: 12/03/2016 10:54 [place] COMPARISON: CHEST SINGLE AP, December 03, 2016, 2:17. INDICATIONS : Central line placement. MEDICAL HISTORY : None. SURGICAL HISTORY : None. ENCOUNTER: Initial ACUITY: 1 day PAIN SCORE: Non-responsive. LOCATION: chest FINDINGS: Line in good position. The heart is enlarged. Minimal perihilar parenchyma is noted. There is no p neumothorax. CONCLUSION: Right IJ line in good position without pneumothorax. Efra Fleming MD FACR on December 03, 2016 at 11:41 Board Certified Radiologist. This report was verified electronically.
[2016-12-03] MEDS ORDERED: LORazepam 2 MG/ML VIAL IV ONE ×2 (15:45→17:00)
[2016-12-03] MEDS ORDERED: MORPHINE SULFATE 8 MG/ML INJ IV PUSH ONE ×2 (15:45→17:00)
[2016-12-03] MEDS ORDERED: HYOSCYAMINE 0.5 MG/ML AMP IV ONE (17:00)
--- NOTE | 2016-12-03 22:29 | EKG ---
Date Performed: 12/03/2016 Time Performed: 02:20:09 PTAGE: 86 years EKG: Sinus rhythm WITH FIRST DEGREE AV BLOCK WITH OCCASIONAL SUPRAVENTRICULAR PREMATURE COMPLEXES NONSPECIFIC T-WAVE A BNORMALITY ABNORMAL ECG PREVIOUS TRACING : 05/01/2014 14.10 DOCTOR: Ann Chinchilla Interpretating Date/Time 12/03/2016 22:28:25
[2016-12-04] MEDS ORDERED: CHLORHEXIDINE GLUCONATE 2 % 1 PACK (2 CLOTHS) TOP SCH (04:00)
--- NOTE | 2016-12-04 16:26 | HHI.DS ---
Summary Note Date of : Dec 03, 2016 Time Of : 1827 Admission Date Dec 03, 2016 at 03:58 Admitting Diagnosis MODS, Hypothermia Diagnosis at Time of : Procedures Right internal jugular central line placement Right arterial radial art line placement Brief History 86-year-old male with advanced Alzheimer dementia and a resident of assisted living facility, where he had been somewhat dyspneic for approx 6 hours and less interactive than normal. Per Lavern RN at [facility] the patient is normally communicative with clear speech. He is wheelchair bound. Over the past couple days he has been declining and increasingly confused. This evening he became increasingly short of breath. With regard to the confusion the patient was taking off his clothes and taking off his briefs. He was unable to swallow his medications at one point and gurgling was heard by [facility] staff. It sounded as though there was "liquid in his chest" and EMS was activated at that point. CBC/BMP: 12/03/16 0205 12/03/16 0205 Significant Findings Laboratory Tests Test 12/03/16 12/03/16 12/03/16 12/03/16 02:05 02:15 02:25 04:40 Red Blood Count 3.25 MIL/MM3 (4.50-5.90) Hemoglobin 10.5 GM/DL (13.0-17.0) Hematocrit 31.9 % (39.0-51.0) Platelet Count 89 TH/MM3 (150-450) Neutrophils (%) (Auto) 87.2 % (16.0-70.0) Lymphocytes # (Auto) 0.7 TH/MM3 (1.0-4.8) Band Neutrophils % 28 % (0-6) Nucleated Red Blood Cells 5 /100 WBC (0-0) Platelet Estimate LOW (NORMAL) Ovalocytes 1+ (NORMAL) Activated Partial 31.1 SEC Thromboplast Time (24.3-30.1) Sodium Level 152 MEQ/L (136-145) Chloride Level 117 MEQ/L (98-107) Carbon Dioxide Level 19.7 MEQ/L (21.0-32.0) Blood Urea Nitrogen 74 MG/DL (7-18) Creatinine 2.10 MG/DL (0.60-1.30) Estimat Glomerular Filtration 30 ML/MIN (>89) Rate Aspartate Amino Transf 56 U/L (15-37) (AST/SGOT) Creatine Kinase MB 19.9 NG/ML (0.5-3.6) Total Protein 5.8 GM/DL (6.4-8.2) Albumin 2.4 GM/DL (3.4-5.0) Lactic Acid Level 9.1 mmol/L 9.4 mmol/L (0.4-2.0) (0.4-2.0) Urine Color ORANGE (YELLW/STRAW) Urine Turbidity HAZY (CLEAR) Urine Protein 30 mg/dL (NEG-TRACE) Urine Urobilinogen 4.0 MG/DL (LESS THAN 2.0) Urine Leukocyte Esterase LARGE (NEG) Urine RBC 5 /hpf (0-3) Urine WBC 14 /hpf (0-5) Urine Bacteria RARE /hpf (NONE) Urine Mucus FEW /lpf (OCC) Blood Gas HCO3 14 mmol/L (22-26) Blood Gas Base Excess -10.4 mmol/L (-2-2) Arterial Blood pH 7.34 (7.380-7.420) Arterial Blood Partial 27 mmHg (38-42) Pressure CO2 Imaging Last [address] 12/03/16209 Signed Impressions: Service Date/Time: Saturday, December 03, 2016 03:04 - CONCLUSION: Atrophy. No evidence of acute intracranial pathology. Garrett Almanzar MD Chest X-Ray 12/03/16209 Signed Impressions: Service Date/Time: Saturday, December 03, 2016 02:17 - CONCLUSION: 1. Perihilar pulmonary edema Garrett Almanzar MD Abdomen/Pelvis CT 12/03/16209 Signed Impressions: Service Date/Time: Saturday, December 03, 2016 03:06 - CONCLUSION: 1. Fecal impaction. There is thickening of the wall of the rectum which may reflect stercoral colitis. Garrett Almanzar MD Chest CT 12/03/16 0000 Signed Impressions: Service Date/Time: Saturday, December 03, 2016 03:08 - CONCLUSION: 1. Perihilar pulmonary edema with bilateral effusions and bibasilar atelectasis Garrett Almanzar MD Hospital Course Subjective: 12/03: The patient's blood pressure was noted to be in the 70s. Family was contacted by RN, requested measures be instituted regarding blood pressure. Consents were obtained for central line and arterial line. Palliative care was consulted. As the day progressed, the patient became hemodynamically unstable. Palliative care discussion with family, decision made for comfort care. With the family at patient's bedside comfort care measures were instituted, and the patient at 1828. Carlita Sterling MD Dec 04, 2016 16:26
== END 2016-12-03 18:28 | disposition expired | DRG 871 ==
LOC: NEPC 02:09 → NEDA 03:58 → HIMW 05:55
PROVIDERS: ADMIT Internal Medicine Critical Care Medicine; ATTEND Internal Medicine Critical Care Medicine
PROC: 02HV33Z Insertion of Infusion Device into Superior Vena Cava, Percutaneous Approach (ICD-10-PCS; principal; 2016-12-03)
PROC: 03HY32Z Insertion of Monitoring Device into Upper Artery, Percutaneous Approach (ICD-10-PCS; 2016-12-03)
DX: A41.9 Sepsis, unspecified organism (principal); J96.90 Respiratory failure, unspecified, unspecified whether with hypoxia or hypercapnia; R57.0 Cardiogenic shock; N17.9 Acute kidney failure, unspecified; J90 Pleural effusion, not elsewhere classified; J81.1 Chronic pulmonary edema; N39.0 Urinary tract infection, site not specified; G30.9 Alzheimer's disease, unspecified; F02.80 Dementia in other diseases classified elsewhere, unspecified severity, without behavioral disturbance, psychotic disturbance, mood disturbance, and anxiety; R13.10 Dysphagia, unspecified; I48.91 Unspecified atrial fibrillation; E11.9 Type 2 diabetes mellitus without complications; D64.9 Anemia, unspecified; I10 Essential (primary) hypertension; R65.20 Severe sepsis without septic shock; F41.9 Anxiety disorder, unspecified; N40.0 Benign prostatic hyperplasia without lower urinary tract symptoms; R68.0 Hypothermia, not associated with low environmental temperature; E78.5 Hyperlipidemia, unspecified; Z99.3 Dependence on wheelchair; Z66 Do not resuscitate; Z79.84 Long term (current) use of oral hypoglycemic drugs; Z51.5 Encounter for palliative care
CPT/HCPCS: 36556; 36600; 51702; 70450; 71010; 71250; 74176; 76937; 80053; 81001; 82140; 82550; 82552; 82805; 83605; 83690; 83735; 84484; 85007; 85027; 85610; 85730; 87040; 87086; 93005; 94640; 94664; 96361; 96374; 96375; 96376; J2060; J2270; J2310; J2370; J2543; J3010; J3370; J7030; J7040; J7060